=== PATIENT | female | born 1990 | race Hispanic/Latino ===

== ENCOUNTER 2016-06-25 02:39 | Emergency (ER) | payer SELFPAY ==
[2016-06-25 02:49] VITALS: BP 107/69; PULSE 89; RESP 18; TEMP 99; O2SAT 100
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
== END 2016-06-25 07:11 | disposition home or self-care (01) ==
LOC: H.ER 02:39
DX: F25.9 Schizoaffective disorder, unspecified (principal)
CPT/HCPCS: 81025; 99283; G0480

== ENCOUNTER 2016-07-01 08:55 | Observation (INO) | payer SELFPAY ==
[2016-07-01 08:58] VITALS: BMI 18.5
--- NOTE | 2016-07-01 09:32 | ED PDOC ---
HPI: Psych/Substance Abuse Time Seen by Provider: 07/01/16 09:20 Chief Complaint (Nursing): Psychiatric Evaluation Chief Complaint (Provider): Hearing voices ED Caveat: Psychotic History Per: Patient History/Exam Limitations: intoxication Additional Complaint(s): Pt presents to ED stating she used heroin and crack today, now hearing "scary" voices. Denies suicidal/homicidal ideation. Pt responding to external stimuli during exam. Past Medical History Reviewed: Nursing Documentation, Vital Signs Vital Signs: Last Vital Signs Temp 96.9 F L 07/01/16 08:56 Pulse 98 H 07/01/16 08:56 Resp 16 07/01/16 08:56 BP 168/80 H 07/01/16 08:56 Pulse Ox 99 07/01/16 08:56 - Medical History PMH: Depression, Schizophrenia Denies: Diabetes, Hepatitis, HIV, HTN, Seizures, Sexually Transmitted Disease - Family History Family History: States: Unknown Family Hx - Allergies Allergies/Adverse Reactions: Allergies Allergy/AdvReac Type Severity Reaction Status Date / Time No Known Allergies Allergy Verified 07/01/16 09:08 Review of Systems Review Of Systems: ROS cannot be obtained secondary to pt's inabilty to answer questions. Physical Exam - Physical Exam Appears: Positive for: No Acute Distress Head Exam: Positive for: ATRAUMATIC, NORMAL INSPECTION Skin: Positive for: Normal Color, Warm, Dry Eye Exam: Positive for: EOMI, PERRL Cardiovascular/Chest: Positive for: Regular Rate, Rhythm Respiratory: Positive for: Normal Breath Sounds Gastrointestinal/Abdominal: Positive for: Normal Exam Neurologic/Psych: Positive for: Alert, engine repairer II-XII, Oriented. Negative for: Motor/Sensory Deficits, Facial Droop - Laboratory Results Result Diagrams: 07/01/16 22:53 07/01/16 22:53 - ECG O2 Sat by Pulse Oximetry: 99 Medical Decision Making Medical Decision Makin yo with polysubstance abuse, hearing voices. - EtOH - UDS - Crisis evaluation ED OBSERVATION Time of observation admission: 09:30 - Observation admission statement Patient is being placed in observation because:: Intoxication Disposition - Clinical Impression Clinical Impression: Polysubstance abuse - Patient ED Disposition Is Patient to be Admitted: Transfer of Care - Disposition Disposition Time: 15:00 Condition: STABLE Patient Signed Over To: Jazlyn Turner Handoff Comments: pending patient waking up and crisis evaluation
--- NOTE | 2016-07-01 15:14 | ED PDOC ---
- Laboratory Results Result Diagrams: 07/01/16 22:53 07/01/16 22:53 - ECG O2 Sat by Pulse Oximetry: 99 (RA) Pulse Ox Interpretation: Normal Medical Decision Making Medical Decision Makin:00 Patient was signed out to me by Elizabeth Parker MD pending patient waking up and crisis evaluation 1800 Pt excessively lethargic. Arousable but falls asleep quickly. 2100 Pt still sleepy but arousable 2245 IVF ordered for prolonged observation without PO fluid or food intake due to lethargy. Pending alertness. [address] Liao pending sobriety. Scribe Attestation: Documented by Elizabeth Portillo, acting as a scribe for Jazlyn Turner MD. Provider Scribe Attestation: All medical record entries made by the Scribe were at my direction and personally dictated by me. I have reviewed the chart and agree that the record accurately reflects my personal performance of the history, physical exam, medical decision making, and the department course for this patient. I have also personally directed, reviewed, and agree with the discharge instructions and disposition. Disposition - Clinical Impression Clinical Impression: Polysubstance abuse - POA Present On Arrival: None - Disposition Disposition: Transfer of Care Disposition Time: 09:30 Condition: IMPROVED
[2016-07-01 20:18] VITALS: TEMP 98.3
[2016-07-01 21:19] VITALS: RESP 16
[2016-07-01] MEDS ORDERED: Sodium Chloride 0.9% 1,000 ML IV STA (22:47)
[2016-07-01] MEDS ORDERED: Dextrose 5%/Lactated Ringer's 1,000 ML IV SCH (23:00)
[2016-07-01 23:03] LABS: BASO # 0.1 K/uL (0.0-0.2); EOS # 0.2 K/uL (0.0-0.7); EOS % 2.9 % (0.0-4.0); HEMATOCRIT 38.4 % (34.0-47.0); LYMPH # 2.2 K/uL (1.0-4.3); LYMPH % 34.8 % (20.0-40.0); MEAN CELL VOLUME 94.4 fl (81.0-99.0); MEAN CORPUSCULAR HEMOGLOBIN 32.1 pg (27.0-31.0); MEAN PLATELET VOLUME 8.8 fl (7.2-11.7); MONO # 0.5 K/uL (0.0-0.8); MONO % 8.7 % (0.0-10.0); NEUT # 3.3 K/uL (1.8-7.0); NEUT % 52.6 % (50.0-75.0); NRBC % 0.1 % (0.0-0.0); RED CELL DISTRIBUTION WIDTH 12.7 % (11.5-14.5); WHITE BLOOD COUNT 6.2 K/uL (4.8-10.8)
[2016-07-01 23:10] LABS: ALB/GLOB RATIO 1.2 (1.0-2.1); ALCOHOL SERUM < 10 mg/dl (0-10); ALKALINE PHOSPHATASE 64 U/L (38-126); ALT/SGPT 37 U/L (9-52); AST/SGOT 52 U/L (14-36); BILIRUBIN,TOTAL 0.4 mg/dl (0.2-1.3); BLOOD UREA NITROGEN 7 mg/dl (7-17); CALCIUM 9.1 mg/dL (8.4-10.2); CARBON DIOXIDE 26 mmol/L (22-30); CHLORIDE 103 mmol/L (98-107); GFR AFRICAN-AMERICAN > 60; GLUCOSE,RANDOM 80 mg/dL (65-105); POTASSIUM 3.4 MMOL/L (3.6-5.0); SODIUM 136 mmol/l (132-148); TOTAL PROTEIN 6.3 G/DL (6.3-8.2)
[2016-07-01 23:23] LABS: PARTIAL THROMBOPLASTIN TIME 29.8 SECONDS (23.3-32.5)
--- NOTE | 2016-07-01 23:52 | ED PDOC ---
- Laboratory Results Result Diagrams: 07/01/16 22:53 07/01/16 22:53 - ECG O2 Sat by Pulse Oximetry: 99 (RA) Pulse Ox Interpretation: Normal Medical Decision Making Medical Decision Makin:50 Patient transferred over to provider by Dr. Turner. Pending clinical sobriety. 05:10 Patient cleared by crisis evaluation for discharge. 05:15 Upon provider reevaluation, patient's condition has improved, is awake, alert, eating, and requires no further treatment in the emergency department at this time. Patient will be discharged home. Counseling was provided and all questions were answered regarding diagnosis. Patient is in agreement with provider's discharge plan. Clinical Impression: Polysubstance abuse Scribe Attestation: Documented by Raji Schneider, acting as a scribe for Amisha Liao MD. Provider Scribe Attestation: All medical record entries made by the Scribe were at my direction and personally dictated by me. I have reviewed the chart and agree that the record accurately reflects my personal performance of the history, physical exam, medical decision making, and the department course for this patient. I have also personally directed, reviewed, and agree with the discharge instructions and disposition. Disposition Doctor Will See Patient In The: ED Counseled Patient/Family Regarding: Studies Performed, Diagnosis, Need For Followup - Clinical Impression Clinical Impression: Polysubstance abuse - POA Present On Arrival: None - Disposition Disposition: Routine/Home Disposition Time: 05:15 Condition: IMPROVED
[2016-07-02 02:55] VITALS: BP 114/71; PULSE 77
[2016-07-02 05:19] VITALS: O2SAT 99
== END 2016-07-02 05:52 | disposition home or self-care (01) ==
LOC: H.ER 08:55 → H.EROBSV 09:30
PROVIDERS: ADMIT Emergency Medicine; ATTEND Emergency Medicine
DX: F11.10 Opioid abuse, uncomplicated (principal); F14.10 Cocaine abuse, uncomplicated; R44.0 Auditory hallucinations
CPT/HCPCS: 36415; 80053; 81025; 82948; 85025; 85610; 85730; 96372; 99285; G0378; G0480; J1630; J2060; J7040; J7120

== ENCOUNTER 2016-07-20 12:23 | Emergency (ER) | payer MEDICAID ==
[2016-07-20 12:23] VITALS: BMI 18.5
[2016-07-20 12:40] VITALS: BP 109/74; PULSE 92; RESP 16; TEMP 98.3; O2SAT 99
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
== END 2016-07-20 13:50 | disposition home or self-care (01) ==
LOC: H.ER 12:23
DX: F20.9 Schizophrenia, unspecified (principal)

== ENCOUNTER 2016-07-20 17:40 | Emergency (ER) | payer MEDICAID ==
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
[2016-07-20 18:14] VITALS: BMI 21.2
[2016-07-20 19:24] LABS: BASO # 0.1 K/uL (0.0-0.2); BASO % 0.6 % (0.0-2.0); EOS # 0.4 K/uL (0.0-0.7); EOS % 3.3 % (0.0-4.0); HEMATOCRIT 35.7 % (34.0-47.0); LYMPH # 3.5 K/uL (1.0-4.3); LYMPH % 28.9 % (20.0-40.0); MEAN CELL VOLUME 92.9 fl (81.0-99.0); MEAN CORPUSCULAR HEMOGLOBIN 31.1 pg (27.0-31.0); MEAN CORPUSCULAR HGB CONC 33.5 g/dL (33.0-37.0); MONO # 0.9 K/uL (0.0-0.8); MONO % 7.5 % (0.0-10.0); NEUT # 7.1 K/uL (1.8-7.0); NEUT % 59.7 % (50.0-75.0); RED CELL DISTRIBUTION WIDTH 12.6 % (11.5-14.5)
[2016-07-20 19:39] LABS: ALB/GLOB RATIO 1.3 (1.0-2.1); ALCOHOL SERUM < 10 mg/dl (0-10); ALKALINE PHOSPHATASE 73 U/L (38-126); ALT/SGPT 36 U/L (9-52); AST/SGOT 53 U/L (14-36); BILIRUBIN,TOTAL 0.2 mg/dl (0.2-1.3); BLOOD UREA NITROGEN 16 mg/dl (7-17); CALCIUM 9.4 mg/dL (8.4-10.2); CARBON DIOXIDE 23 mmol/L (22-30); CHLORIDE 101 mmol/L (98-107); GFR AFRICAN-AMERICAN > 60; GLUCOSE,RANDOM 143 mg/dL (65-105); POTASSIUM 3.5 MMOL/L (3.6-5.0); SODIUM 138 mmol/l (132-148); TOTAL PROTEIN 7.7 G/DL (6.3-8.2)
== END 2016-07-20 19:30 | disposition home or self-care (01) ==
LOC: H.ER 17:40
DX: F11.20 Opioid dependence, uncomplicated (principal)

== ENCOUNTER 2016-07-24 09:07 | Emergency (ER) | payer MEDICAID ==
[2016-07-24 09:10] VITALS: BP 115/78; PULSE 79; TEMP 97; O2SAT 100
[2016-07-24 09:11] VITALS: BMI 19.3
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
[2016-07-24 11:14] VITALS: RESP 18
== END 2016-07-24 11:00 | disposition home or self-care (01) ==
LOC: H.ER 09:07
DX: F20.9 Schizophrenia, unspecified (principal); F32.9 Major depressive disorder, single episode, unspecified

== ENCOUNTER 2016-07-25 01:20 | Emergency (ER) | payer MEDICAID ==
[2016-07-25 01:20] VITALS: BMI 19.3
[2016-07-25 01:37] VITALS: BP 114/69; PULSE 80; RESP 16; TEMP 98.7; O2SAT 100
--- NOTE | 2016-07-25 01:54 | ED PDOC ---
HPI: General Adult Time Seen by Provider: 07/25/16 01:35 Chief Complaint (Nursing): Headache Chief Complaint (Provider): facial pain History Per: Patient History/Exam Limitations: no limitations Onset/Duration Of Symptoms: Hrs Have you had recent travel within the past 21 days to any of the following countries: [place], [place], [place] or [place]?: No Current Symptoms Are (Timing): Still Present Additional Complaint(s): 25yo undomiciled female with PMHx including substance abuse and opiate dependence presents to the ED with c/o facial pain. Patient was seen for same approximately 16 hours ago in this facility and discharged. When provider attempted to interview patient she states she wants a blanket and to be allowed to sleep. Upon further questioning patient states she fell to the ground and hit her face and admits this is the same reason she came to the ED before. Denies head injury or LOC. Admits to drug use. Past Medical History Reviewed: Historical Data, Nursing Documentation, Vital Signs Vital Signs: Last Vital Signs Temp 98.7 F 07/25/16 01:35 Pulse 80 07/25/16 01:35 Resp 16 07/25/16 01:35 BP 114/69 07/25/16 01:35 Pulse Ox 100 07/25/16 01:35 - Medical History PMH: Depression, Schizophrenia Denies: Diabetes, Hepatitis, HIV, HTN, Seizures, Sexually Transmitted Disease Other PMH: substance abuse, opiate dependence - Surgical History Surgical History: No Surg Hx - Family History Family History: States: No Known Family Hx - Social History Current smoker - smoking cessation education provided: Yes Alcohol: > 2 Drinks/Day Drugs: Other (heroin ) - Immunization History Hx Tetanus Toxoid Vaccination: No Hx Influenza Vaccination: No Hx Pneumococcal Vaccination: No - Home Medications Home Medications: Ambulatory Orders Medication Instructions Recorded Benztropine [Cogentin] 1 mg PO BID #60 tab 07/11/16 Gabapentin [Neurontin] 100 mg PO TID #90 cap 07/11/16 Haloperidol [Haldol] 5 mg PO BID #60 tab 07/11/16 traZODone [Desyrel] 50 mg PO HS #30 tab 07/11/16 - Allergies Allergies/Adverse Reactions: Allergies Allergy/AdvReac Type Severity Reaction Status Date / Time No Known Allergies Allergy Verified 07/01/16 09:08 Review of Systems ROS Statement: Except As Marked, All Systems Reviewed And Found Negative Musculoskeletal: Positive for: Other (facial pain, no head injury ) Neurological: Positive for: Other (no LOC ) Physical Exam - Reviewed Nursing Documentation Reviewed: Yes Vital Signs Reviewed: Yes - Physical Exam Appears: Positive for: No Acute Distress (unkempt, poor state of hygiene ) Head Exam: Positive for: ATRAUMATIC (no facial swelling, edema, or tenderness ) , NORMAL INSPECTION, NORMOCEPHALIC Skin: Positive for: Normal Color, Warm, Dry Eye Exam: Positive for: Normal appearance, EOMI, PERRL ENT: Positive for: Normal ENT Inspection Neck: Positive for: Normal, Painless ROM, Supple Cardiovascular/Chest: Positive for: Regular Rate, Rhythm. Negative for: Murmur , Tachycardia Respiratory: Positive for: Normal Breath Sounds. Negative for: Wheezing, Respiratory Distress Gastrointestinal/Abdominal: Positive for: Normal Exam, Soft. Negative for: Tenderness Back: Positive for: Normal Inspection Extremity: Positive for: Normal ROM. Negative for: Deformity, Swelling Neurologic/Psych: Positive for: Alert, Oriented - ECG O2 Sat by Pulse Oximetry: 100 Pulse Ox Interpretation: Normal (RA) Medical Decision Making Medical Decision Makin: Impression: 25yo female w/ facial contusion Patient stable for d/c and instructed to use Tylenol. Scribe Attestation: Documented by Sandie Rico acting as a scribe for Kane Hogue MD. Provider Scribe Attestation: All medical record entries made by the Scribe were at my direction and personally dictated by me. I have reviewed the chart and agree that the record accurately reflects my personal performance of the history, physical exam, medical decision making, and the department course for this patient. I have also personally directed, reviewed, and agree with the discharge instructions and disposition. Disposition - Clinical Impression Clinical Impression: Facial contusion - Patient ED Disposition Is Patient to be Admitted: No - Disposition Referrals: [facility] [Outside] Disposition: Routine/Home Disposition Time: 01:50 Condition: STABLE Additional Instructions: Take Tylenol as needed for pain Instructions: Facial Contusion (ED)
== END 2016-07-25 02:03 | disposition home or self-care (01) ==
LOC: H.ER 01:20
DX: S00.83XA Contusion of other part of head, initial encounter (principal); W19.XXXA Unspecified fall, initial encounter; Y92.89 Other specified places as the place of occurrence of the external cause; F11.20 Opioid dependence, uncomplicated; F20.9 Schizophrenia, unspecified; F32.9 Major depressive disorder, single episode, unspecified; F17.200 Nicotine dependence, unspecified, uncomplicated

== ENCOUNTER 2016-07-26 00:57 | Emergency (ER) | payer MEDICAID ==
[2016-07-26 00:58] VITALS: BMI 19.3
[2016-07-26 01:05] VITALS: BP 118/72; PULSE 101; RESP 16; TEMP 98.9; O2SAT 98
--- NOTE | 2016-07-26 01:18 | ED PDOC ---
HPI: Psych/Substance Abuse Time Seen by Provider: 07/26/16 01:08 Chief Complaint (Nursing): Psychiatric Evaluation History Per: Patient History/Exam Limitations: no limitations Onset/Duration Of Symptoms: Mins Current Symptoms Are (Timing): Better Suicide/Self Injury Attempted (Context): None Additional Complaint(s): Pt. w/ schizophrenia brought in by police because she was shouting at people in the street. States she was yelling at "Retards" because they were yelling back at her and threatening her. Denies auditory or visual hallucinations. Denies SI/HI. Denies drug/alcohol abuse at this time. Past Medical History Reviewed: Historical Data, Nursing Documentation Vital Signs: Last Vital Signs Temp 98.9 F 07/26/16 01:00 Pulse 101 H 07/26/16 01:00 Resp 16 07/26/16 01:00 BP 118/72 07/26/16 01:00 Pulse Ox 98 07/26/16 01:00 - Medical History PMH: Depression, Schizophrenia Denies: Diabetes, Hepatitis, HIV, HTN, Seizures, Sexually Transmitted Disease - Family History Family History: States: Unknown Family Hx - Immunization History Hx Tetanus Toxoid Vaccination: No Hx Influenza Vaccination: No Hx Pneumococcal Vaccination: No - Home Medications Home Medications: Ambulatory Orders Medication Instructions Recorded Benztropine [Cogentin] 1 mg PO BID #60 tab 07/11/16 Gabapentin [Neurontin] 100 mg PO TID #90 cap 07/11/16 Haloperidol [Haldol] 5 mg PO BID #60 tab 07/11/16 traZODone [Desyrel] 50 mg PO HS #30 tab 07/11/16 - Allergies Allergies/Adverse Reactions: Allergies Allergy/AdvReac Type Severity Reaction Status Date / Time No Known Allergies Allergy Verified 07/01/16 09:08 Review of Systems ROS Statement: Except As Marked, All Systems Reviewed And Found Negative Physical Exam - Reviewed Nursing Documentation Reviewed: Yes Vital Signs Reviewed: Yes - Physical Exam Appears: Positive for: Well (disheveled, unkempt), Non-toxic, No Acute Distress Head Exam: Positive for: ATRAUMATIC, NORMAL INSPECTION, NORMOCEPHALIC Skin: Positive for: Normal Color, Warm, DRY Eye Exam: Positive for: EOMI, Normal appearance, PERRL ENT: Positive for: Normal ENT Inspection Neck: Positive for: Normal, Painless ROM Cardiovascular/Chest: Positive for: Regular Rate, Rhythm Respiratory: Positive for: CNT, Normal Breath Sounds Gastrointestinal/Abdominal: Positive for: Normal Exam, Bowel Sounds, Soft Back: Positive for: Normal Inspection Extremity: Positive for: Normal ROM Neurologic/Psych: Positive for: Alert, Oriented - ECG O2 Sat by Pulse Oximetry: 98 Medical Decision Making Medical Decision Making: Pt. w/ schiziophrenia brought in by police for agitated episode. Pt. has been seen several times in the past few days, has already been seen and cleared by crisis. No acute psychiatric intervention at this time. Patient is medically and psychiatrically stable for dischrage and outpatient followup at [facility]. Disposition - Clinical Impression Clinical Impression: Homeless single person, Schizophrenia - Disposition [facility] Disposition Time: 01:18 Condition: STABLE Instructions: Schizophrenia (ED), Suicide Prevention for Adults (ED)
== END 2016-07-26 01:40 | disposition home or self-care (01) ==
LOC: H.ER 00:57
DX: F20.9 Schizophrenia, unspecified (principal)

== ENCOUNTER 2016-07-30 19:51 | Emergency (ER) | payer SELFPAY ==
[2016-07-30 20:10] VITALS: BMI 21.0
--- NOTE | 2016-07-30 20:16 | ED PDOC ---
HPI: Psych/Substance Abuse Time Seen by Provider: 07/30/16 20:05 Chief Complaint (Nursing): Psychiatric Evaluation Chief Complaint (Provider): Psychiatric Evaluation History Per: Patient History/Exam Limitations: no limitations Current Symptoms Are (Timing): Still Present Additional Complaint(s): Jazlyn Schmitz is a 25 year old female with a history of schizophrenia that was brought to the ED by Manny CRISTOBAL. Patient has a hx of drug abuse, though she denies using any drugs or alcohol today. Past Medical History Reviewed: Historical Data, Nursing Documentation, Vital Signs - Medical History PMH: Depression, Schizophrenia Denies: Diabetes, Hepatitis, HIV, HTN, Seizures, Sexually Transmitted Disease - Family History Family History: States: Unknown Family Hx - Immunization History Hx Tetanus Toxoid Vaccination: No Hx Influenza Vaccination: No Hx Pneumococcal Vaccination: No - Home Medications Home Medications: Ambulatory Orders Medication Instructions Recorded Benztropine [Cogentin] 1 mg PO BID #60 tab 07/11/16 Gabapentin [Neurontin] 100 mg PO TID #90 cap 07/11/16 Haloperidol [Haldol] 5 mg PO BID #60 tab 07/11/16 traZODone [Desyrel] 50 mg PO HS #30 tab 07/11/16 - Allergies Allergies/Adverse Reactions: Allergies Allergy/AdvReac Type Severity Reaction Status Date / Time No Known Allergies Allergy Verified 07/01/16 09:08 Review of Systems Psych: Positive for: Other (Patient appears to be hearing voices) Physical Exam - Reviewed Nursing Documentation Reviewed: Yes Vital Signs Reviewed: Yes - Physical Exam Appears: Positive for: Non-toxic, In Acute Distress (In mild distress, as she is extremely uncooperative and verbally aggressive. Patient appears disheveled.) Head Exam: Positive for: ATRAUMATIC, NORMOCEPHALIC Skin: Positive for: Normal Color, Warm Neurologic/Psych: Positive for: Alert (A and O to person and place. Pt appears to be having visual hallucinations. ), Oriented (A and O to person and place. ) - Laboratory Results Result Diagrams: 07/30/16 21:35 07/30/16 21:35 Medical Decision Making Medical Decision Making: Impression: Psychiatric Evaluation Plan: * CMP * CBC * Alcohol * Urine Drug Screen * Urine * Urinalysis * Haldol 5 mg IM * Ativan 2 mg IM * Restraints * Crisis Evaluation * Reevaluation Scribe Attestation: Documented by Radha Hughes, acting as a scribe for Denny Stallworth PA-C. Provider Scribe Attestation: All medical record entries made by the Scribe were at my direction and personally dictated by me. I have reviewed the chart and agree that the record accurately reflects my personal performance of the history, physical exam, medical decision making, and the department course for this patient. I have also personally directed, reviewed, and agree with the discharge instructions and disposition. Disposition - Clinical Impression Clinical Impression: Agitated - Patient ED Disposition Is Patient to be Admitted: Transfer of Care - Disposition Disposition: Transfer of Care Disposition Time: 00:00 Condition: FAIR Patient Signed Over To: Kane Hogue Handoff Comments: PENDING URINALYSIS/DRUG SCREEN/PREG
[2016-07-30 21:45] LABS: BASO # 0.1 K/uL (0.0-0.2); EOS # 0.2 K/uL (0.0-0.7); EOS % 1.9 % (0.0-4.0); HEMOGLOBIN 12.6 g/dL (12.0-16.0); LYMPH # 3.3 K/uL (1.0-4.3); MEAN CELL VOLUME 92.1 fl (81.0-99.0); MEAN CORPUSCULAR HEMOGLOBIN 31.4 pg (27.0-31.0); MEAN CORPUSCULAR HGB CONC 34.1 g/dL (33.0-37.0); MEAN PLATELET VOLUME 8.6 fl (7.2-11.7); MONO # 0.5 K/uL (0.0-0.8); MONO % 4.1 % (0.0-10.0); NEUT # 8.1 K/uL (1.8-7.0); NRBC % 0.1 % (0.0-0.0); RBC 4.01 Mil/uL (3.80-5.20); RED CELL DISTRIBUTION WIDTH 13.1 % (11.5-14.5); WHITE BLOOD COUNT 12.3 K/uL (4.8-10.8)
[2016-07-30 22:02] LABS: ALB/GLOB RATIO 1.4 (1.0-2.1); ALBUMIN 4.2 g/dL (3.5-5.0); ALT/SGPT 25 U/L (9-52); AST/SGOT 36 U/L (14-36); BLOOD UREA NITROGEN 21 mg/dl (7-17); CALCIUM 9.5 mg/dL (8.4-10.2); GFR AFRICAN-AMERICAN > 60; GFR NON-AFRICAN AMERICAN > 60
--- NOTE | 2016-07-31 00:42 | ED PDOC ---
- Laboratory Results Result Diagrams: 07/30/16 21:35 07/30/16 21:35 Medical Decision Making Medical Decision Making: Patient signed out to provider from [facility] at 0000 pending crisis evaluation. 22:04 Patient has been cleared by crisis for discharge. Patient is medically stable, and requires no further treatment in the ED at this time. Dx: Substance induced psychosis __ Scribe Attestation Documented by Olga Jenesn acting as a scribe for Kane Hogue MD. Provider Attestation All medical record entries made by the Scribe were at my direction and personally dictated by me. I have reviewed the chart and agree that the record accurately reflects my personal performance of the history, physical exam, medical decision making, and the department course for this patient. I have also personally directed, reviewed, and agree with the discharge instructions and disposition Disposition Counseled Patient/Family Regarding: Studies Performed, Diagnosis - Clinical Impression Clinical Impression: Drug-induced psychotic disorder, Substance abuse - POA Present On Arrival: None - Disposition Disposition: Routine/Home Disposition Time: 22:04 Condition: STABLE Instructions: Polysubstance Abuse (ED)
--- NOTE | 2016-07-31 08:01 | CARD ---
APPROVED REPORT EKG Measurement Heart [id number] <Conclusion> Normal sinus rhythm Normal ECG
== END 2016-07-31 06:46 | disposition home or self-care (01) ==
LOC: H.ER 19:51
DX: F19.959 Other psychoactive substance use, unspecified with psychoactive substance-induced psychotic disorder, unspecified (principal); F19.10 Other psychoactive substance abuse, uncomplicated; F20.9 Schizophrenia, unspecified; F32.9 Major depressive disorder, single episode, unspecified
CPT/HCPCS: 80053; 85025; 93005; 96372; 99282; G0480; J1630; J2060

== ENCOUNTER 2016-08-03 07:02 | Emergency (ER) | payer SELFPAY ==
[2016-08-03 07:02] VITALS: BMI 19.3
[2016-08-03 07:14] VITALS: BP 119/86; PULSE 86; RESP 18; TEMP 97.8; O2SAT 97
--- NOTE | 2016-08-03 08:12 | ED PDOC ---
HPI: Psych/Substance Abuse Time Seen by Provider: 08/03/16 07:45 Chief Complaint (Nursing): Psychiatric Evaluation History Per: Patient, Other History/Exam Limitations: clinical condition (patient agitaed and at times appears to be stare blankly when questions are asked.) Current Symptoms Are (Timing): Still Present Associated Symptoms: Agitation, Paranoia. denies: Suicidal Thoughts Involuntary Hold By: None Additional History Per: EMS (patient brought by EMS because she is pacing in the street speaking loudly. Patient has been to the ER over the past few days with similar symptoms.) Past Medical History Reviewed: Historical Data, Nursing Documentation, Vital Signs Vital Signs: Last Vital Signs Temp 97.8 F 08/03/16 07:10 Pulse 86 08/03/16 07:10 Resp 18 08/03/16 07:10 BP 119/86 08/03/16 07:10 Pulse Ox 97 08/03/16 07:10 - Medical History PMH: Depression, Schizophrenia Denies: Diabetes, Hepatitis, HIV, HTN, Seizures, Sexually Transmitted Disease - Surgical History Other surgeries: cannot obtain history - Family History Family History: States: Unknown Family Hx - Living Arrangements Living Arrangements: Other (undomiciled) - Immunization History Hx Tetanus Toxoid Vaccination: No Hx Influenza Vaccination: No Hx Pneumococcal Vaccination: No - Home Medications Home Medications: Ambulatory Orders Medication Instructions Recorded Benztropine [Cogentin] 1 mg PO BID #60 tab 07/11/16 Gabapentin [Neurontin] 100 mg PO TID #90 cap 07/11/16 Haloperidol [Haldol] 5 mg PO BID #60 tab 07/11/16 traZODone [Desyrel] 50 mg PO HS #30 tab 07/11/16 - Allergies Allergies/Adverse Reactions: Allergies Allergy/AdvReac Type Severity Reaction Status Date / Time No Known Allergies Allergy Verified 07/01/16 09:08 Review of Systems Review Of Systems: ROS cannot be obtained secondary to pt's inabilty to answer questions. Physical Exam - Physical Exam Appears: Positive for: No Acute Distress Head Exam: Positive for: NORMAL INSPECTION Skin: Positive for: Normal Color Neck: Positive for: Normal Respiratory: Negative for: Respiratory Distress Gastrointestinal/Abdominal: Negative for: Distended - ECG O2 Sat by Pulse Oximetry: 97 Medical Decision Making Medical Decision Making: patient seen by crisis and cleared for discharge. Disposition - Clinical Impression Clinical Impression: Schizophrenia, Polysubstance abuse - Patient ED Disposition Is Patient to be Admitted: No Doctor Will See Patient In The: Office Counseled Patient/Family Regarding: Diagnosis, Need For Followup - Disposition Referrals: [facility] [Outside] Disposition: Routine/Home Disposition Time: 08:54 Condition: STABLE Instructions: Polysubstance Abuse (ED) - POA Present On Arrival: None
[2016-08-03 08:39] LABS: BARBITURATES, UR NEGATIVE (NEGATIVE); BENZODIAZEPINES, UR NEGATIVE (NEGATIVE); OPIATES, UR POSITIVE (NEGATIVE); PHENCYCLIDINE, UR NEGATIVE (NEGATIVE)
== END 2016-08-03 08:58 | disposition home or self-care (01) ==
LOC: H.ER 07:02
DX: F20.9 Schizophrenia, unspecified (principal); F32.9 Major depressive disorder, single episode, unspecified; F19.10 Other psychoactive substance abuse, uncomplicated
CPT/HCPCS: 81025; 99281; G0480